=== PATIENT | male | born 1990 | race Caucasian/White ===

== ENCOUNTER 2018-05-14 01:51 | Emergency (ER) | payer BC ==
[~2018-05-14] VITALS: Ht 175.3 cm; Wt 90.7 kg
[2018-05-14] MEDS ORDERED: ZOLOFT 50 MG TA50 M1 PO (02:05)
[2018-05-14 03:23] VITALS: BP 138/87
== END 2018-05-14 03:24 | disposition home or self-care (01) ==
LOC: ER 01:51
DX: T15.02XA Foreign body in cornea, left eye, initial encounter (principal); W45.8XXA Other foreign body or object entering through skin, initial encounter; Y92.89 Other specified places as the place of occurrence of the external cause; Y93.89 Activity, other specified; Y99.8 Other external cause status